=== PATIENT | female | born 1995 | race Caucasian/White ===

== ENCOUNTER 2021-02-12 12:51 | Emergency (ER) | payer OTHER, MEDICAID ==
[~2021-02-12] VITALS: Ht 172.7 cm; Wt 95.3 kg
[~2021-02-12 12:51] MED LIST: DEPAKOTE250 MG; DEPAKOTE500 MG PO; DESYREL100 MG PO; FOCALIN XR20 MG PO; FOCALIN XR30 MG; GUANFACINE HCL1 MG PO; SEROQUEL 100 M100 MG PO; SEROQUEL XR50 MG PO; TOBREX5 ML OPHTHALMIC
[2021-02-12] MEDS ORDERED: ADDERALL XR 3030 MG PO (12:56)
[2021-02-12] MEDS ORDERED: IBUPROFEN 600600 M1 PO (13:16)
[2021-02-12] MEDS ORDERED: CEPHALEXIN500 MG PO (13:16)
[2021-02-12 13:32] VITALS: BP 145/54
== END 2021-02-12 13:33 | disposition home or self-care (01) ==
LOC: M.ERS 12:51
DX: S01.111A Laceration without foreign body of right eyelid and periocular area, initial encounter (principal); Z90.89 Acquired absence of other organs; W18.39XA Other fall on same level, initial encounter; Y93.89 Activity, other specified; Y92.89 Other specified places as the place of occurrence of the external cause; Y99.8 Other external cause status